=== PATIENT | female | born 2000 | race Two or more races ===

== ENCOUNTER 2022-12-06 21:02 | Outpatient (CLI) | payer OTHER ==
[2022-12-06] MEDS ORDERED: FE C TABLET1 EACH PO (21:32)
[2022-12-06] MEDS ORDERED: PRENATABS RX T1 EACH PO (21:32)
[2022-12-06] MEDS ORDERED: PROMETRIUM200 MG VAG (21:33)
[2022-12-06 22:14] LABS: HEMATOCRIT 31.5 % (36.0-45.00); HEMOGLOBIN 10.4 g/dL (12.0-15.00); MEAN CORPUSCULAR HEMOGLOBIN 27.1 pg (27.00-32.0); PLATELET COUNT 179 K/uL (150-450); RED BLOOD COUNT 3.84 M/uL (4.00-6.00); RED CELL DISTRIBUTION WIDTH 13.7 % (11.5-14.5)
[2022-12-06 22:15] LABS: PH,URINE 7.5 (5.0-8.0); URINE APPEARANCE Clear; URINE BILIRRUBIN Negative (NEGATIVE); URINE BLOOD Negative; URINE COLOR Yellow; URINE GLUCOSE Negative (NEGATIVE); URINE LEUKOCYTE Negative; URINE NITRATE Negative; URINE PROTEIN Trace (NEGATIVE)
[2022-12-06 22:18] LABS: URINE BACTERIA 104.5 uL (0.0-1933); URINE EPITHELIAL CELLS 11.7 uL (0.0-38.8); URINE WBC 7.2 uL (0.0-23.2)
[2022-12-06 22:20] LABS: URINE RBC 0.8 uL (0.0-20.8)
== END 2022-12-07 10:21 | disposition home or self-care (01) ==
LOC: OBS/DEL 21:02
PROVIDERS: ATTEND Specialist
DX: O26.873 Cervical shortening, third trimester (principal); Z3A.30 30 weeks gestation of pregnancy; Z91.013 Allergy to seafood

== ENCOUNTER 2023-01-30 13:19 | Inpatient (IN) | payer OTHER ==
[~2023-01-30] VITALS: Ht 152.4 cm; Wt 71.7 kg
[~2023-01-30 13:19] MED LIST: FE C TABLET1 EACH PO; PRENATABS RX T1 EACH PO; PROMETRIUM200 MG VAG
[2023-01-30 14:40] LABS: HEMOGLOBIN 12.4 g/dL (12.0-15.00); MEAN CELL VOLUME 79.6 fL (80.00-100.00); MEAN CORPUSCULAR HEMOGLOBIN 26.8 pg (27.00-32.0); MEAN CORPUSCULAR HGB CONC 33.7 g/dl (32.0-36.0); PLATELET COUNT 142 K/uL (150-450); RED BLOOD COUNT 4.65 M/uL (4.00-6.00); RED CELL DISTRIBUTION WIDTH 15.6 % (11.5-14.5)
[2023-01-30 14:43] LABS: PH,URINE 6.5 (5.0-8.0); URINE APPEARANCE Clear; URINE BILIRRUBIN Negative (NEGATIVE); URINE BLOOD Moderate; URINE COLOR Yellow; URINE GLUCOSE Negative (NEGATIVE); URINE LEUKOCYTE Trace; URINE NITRATE Negative; URINE PROTEIN Trace (NEGATIVE)
[2023-01-30 14:46] LABS: URINE EPITHELIAL CELLS 23.8 uL (0.0-38.8); URINE RBC 2.5 uL (0.0-20.8); URINE WBC 25.5 uL (0.0-23.2)
[2023-01-30 15:01] LABS: INR < 0.93; PARTIAL THROMBOPLASTIN TIME 24.3 SECONDS (22.0-34.0); PROTHROMBIN TIME 9.6 SECONDS (9.0-11.5)
[2023-01-30 15:09] LABS: ALBUMIN 3.1 gm/dL (3.4-5.0); BILIRUBIN TOTAL 0.5 mg/dL (0.3-1.2); CALCIUM 9.3 mg/dL (8.5-10.1); CREATININE SERUM 0.58 mg/dL (0.55-1.02); GFR 128.83; GLOBULINA 4.3 G/DL (2.4-3.5); POTASSIUM 3.83 mEq/L (3.5-5.1); TOTAL PROTEIN 7.4 gm/dL (6.4-8.2)
[2023-01-30 21:59] LABS: ABG PH 7.235 (7.35-7.45); ABG pCO2 45.7 mmHg (35-45)
[2023-01-30 22:00] LABS: ABG PO2 35.4 mmHg (80-100); BASE EXCESS -8.4 mmol/l; BICARBONATE 18.9 mmol/l (23-25); Tco2 20.4 mmol/l; o2 21 %
[2023-01-30 22:01] LABS: SaO2 54.2 %
== END 2023-02-01 15:00 | disposition home or self-care (01) | DRG 807 ==
LOC: LDR 13:19 → OB/GYN 13:19
PROVIDERS: ADMIT Specialist; ATTEND Specialist
PROC: 10E0XZZ Delivery of Products of Conception, External Approach (ICD-10-PCS; principal; 2023-01-30)
PROC: 0W8NXZZ Division of Female Perineum, External Approach (ICD-10-PCS; 2023-01-30)
PROC: 4A1HXCZ Monitoring of Products of Conception, Cardiac Rate, External Approach (ICD-10-PCS; 2023-01-30)
DX: O80 Encounter for full-term uncomplicated delivery (principal); Z37.0 Single live birth; Z3A.38 38 weeks gestation of pregnancy; Z20.822 Contact with and (suspected) exposure to COVID-19